=== PATIENT | male | born 2005 | race Caucasian/White ===

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

== ENCOUNTER 2024-09-14 12:46 | Outpatient (CLI) | payer OTHER, SELFPAY ==
--- OUTSIDE RECORDS SUMMARY | 2024-09-14 12:52 | XMS_ITS | Patient Health Summary ---
Author Organization [facility] Address [address] [place] [address] Care Team Providers Care Bus Aide Name Role Phone Og Austin MD Primary Care Provider [phone] Note from [facility],non-owned Affiliates and Associated Physician Practices is amultiple site organization consisting of ambulatory clinics and hospital sitesin [place], [place], [place] and [place]. This disclosure is being madepursuant to the Care Everywhere program and may not contain all information available regarding this patient. Last updated 18.[facility] Allergies No known active allergies Medications * Be aware that medications may not be up to date on this document. Alwaysverify current medications with the patient. * albuterol (PROVENTIL;VENTOLIN) (5 MG/ML) 0.5% nebulizer solution(Started 08/03/2010) Inhale 2.5 mg by mouth as directed. * divalproex sodium ER 24hr (DEPAKOTE ER) 250 MG tablet Take 250 mg by mouth daily. * divalproex DR (DEPAKOTE) 250 MG tablet(Started 08/03/2010) Take 500 mg by mouth at bedtime. Social History Tobacco Use Types Packs/Day Years Used Date Smoking Tobacco: Never Assessed Sex and Gender Information Value Date Recorded Sex Assigned at Not on file Gender Identity Not on file Sexual Orientation Not on file Last Filed Vital Signs Vital Sign Reading Time Taken Comments Blood Pressure 83/56 08/03/2010 10:23 AM DAIRY FROZEN MANAGER Pulse 133 08/03/2010 12:33 PM DAIRY FROZEN MANAGER Temperature 37.7 C (99.8 F) 08/03/2010 10:23 AM DAIRY FROZEN MANAGER Respiratory Rate 24 08/03/2010 12:33 PM DAIRY FROZEN MANAGER Oxygen Saturation 96% 08/03/2010 12:33 PM DAIRY FROZEN MANAGER Inhaled Oxygen Concentration - - Weight 29.5 kg (65 lb) 08/03/2010 10:23 AM DAIRY FROZEN MANAGER Height - - Body Mass Index - - Care Teams Bus Aide Relationship Specialty Start Date End Date Og Austin MD [address] [place] [address] PCP - General 08/03/10
--- OUTSIDE RECORDS SUMMARY | 2024-09-14 12:52 | XMS_ITS | Referral Summary ---
Author Organization [facility] Address [address] [place] [address] Care Team Providers Care Workday Manager Name Role Phone Og Austin MD Primary Care Provider [phone] Source Comments [facility],non-owned Affiliates and Associated Physician Practices is amultiple site organization consisting of ambulatory clinics and hospital sitesin [place], [place], [place] and [place]. This disclosure is being madepursuant to the Care Everywhere program and may not contain all information available regarding this patient. Last updated 18.[facility] Allergies No known active allergies Medications * Be aware that medications may not be up to date on this document. Alwaysverify current medications with the patient. Medication Sig Dispensed Refills Start Date End Date Status albuterol (PROVENTIL;VENTOLIN) (5 MG/ML) 0.5% nebulizer solution Inhale 2.5 mg by mouth as directed. 08/03/2010 Active divalproex sodium ER 24hr (DEPAKOTE ER) 250 MG tablet Take 250 mg by mouth daily. Active divalproex DR (DEPAKOTE) 250 MG tablet Take 500 mg by mouth at bedtime. 08/03/2010 Active Social History Tobacco Use Types Packs/Day Years Used Date Smoking Tobacco: Never Assessed Sex and Gender Information Value Date Recorded Sex Assigned at Not on file Gender Identity Not on file Sexual Orientation Not on file Last Filed Vital Signs Vital Sign Reading Time Taken Comments Blood Pressure 83/56 08/03/2010 10:23 AM TRAY LINE SUPERVISOR Pulse 133 08/03/2010 12:33 PM TRAY LINE SUPERVISOR Temperature 37.7 C (99.8 F) 08/03/2010 10:23 AM TRAY LINE SUPERVISOR Respiratory Rate 24 08/03/2010 12:33 PM TRAY LINE SUPERVISOR Oxygen Saturation 96% 08/03/2010 12:33 PM TRAY LINE SUPERVISOR Inhaled Oxygen Concentration - - Weight 29.5 kg (65 lb) 08/03/2010 10:23 AM TRAY LINE SUPERVISOR Height - - Body Mass Index - - Plan of Treatment Not on file Care Teams Workday Manager Relationship Specialty Start Date End Date Og Austin MD [address] [place] [address] PCP - General 08/03/10
--- OUTSIDE RECORDS SUMMARY | 2024-09-14 12:52 | XMS_ITS | Clinical Summary ---
Author Organization [facility] Address [address] [place] [address] Care Team Providers Care Director Of Community Education Name Role Phone Og Austin MD Primary Care Provider [phone] Source Comments [facility],non-owned Affiliates and Associated Physician Practices is amultiple site organization consisting of ambulatory clinics and hospital sitesin [place], [place], [place] and [place]. This disclosure is being madepursuant to the Care Everywhere program and may not contain all information available regarding this patient. Last updated 18.[facility] Allergies No known active allergies Medications * [...] Comments Blood Pressure 83/56 08/03/2010 10:23 AM TEACHER OF THE SIGHT IMPAIRED Pulse 133 08/03/2010 12:33 PM TEACHER OF THE SIGHT IMPAIRED Temperature 37.7 C (99.8 F) 08/03/2010 10:23 AM TEACHER OF THE SIGHT IMPAIRED Respiratory Rate 24 08/03/2010 12:33 PM TEACHER OF THE SIGHT IMPAIRED Oxygen Saturation 96% 08/03/2010 12:33 PM TEACHER OF THE SIGHT IMPAIRED Inhaled Oxygen Concentration - - Weight 29.5 kg (65 lb) 08/03/2010 10:23 AM TEACHER OF THE SIGHT IMPAIRED Height - - Body Mass Index - - Plan of Treatment Health Maintenance Due Date Last Done Comments HIV SCREENING 2018 HPV VACCINE (1 - Male 3-dose series) 2018 MENINGOCOCCAL (Group B) VACC INE (1 of 2 - Standard) 2019 HEPATITIS C SCREENING 08/22/2021 DTAP/TDAP/TD VACCINES (1 - Tdap) 2022 HEPATITIS B VACCINE (1 of 3 - 19+ 3-dose series) 2022 COVID-19 VACCINE (1 - 2023-2 5 season) 2024 INFLUENZA VACCINE (#1) 2024 DEPRESSION SCREENING 08/07/2024 ZOSTER VACCINE (1 of 2) 2053 HIB VACCINE Aged Out No longer eligi ble based on patient's age to complete this topic MENINGOCOCCAL VACCINE Aged Out No michelle lizeth eligible based on patient's age to complete this topic PNEUMOCOCCAL VACCINE Aged Out No long er eligible based on patient's age to complete this topic Care Teams Director Of Community Education Relationship Specialty Start Date End Date Og Austin MD [address] [place] [address] PCP - General 08/03/10
[2024-09-14 13:14] LABS: Hematocrit 44.9 % (40.0-54.0); Hemoglobin 14.4 g/dL (14.0-18.0); Mean Corpuscular HGB Conc 32.1 g/dL (32-36); Mean Corpuscular Hemoglobin 28.8 pg (27.0-31.0); Mean Corpuscular Volume 89.8 fL (78.0-102.0); Mean Platelet Volume 10.2 fl (8.7-11.0); Platelet Count Result 232 K/mm3 (150-420); Red Cell Distribution Width 13.1 % (11.6-14.4); White Blood Count 5.3 K/mm3 (4.8-10.8)
[2024-09-14 13:32] LABS: Alanine Aminotransferase 61 U/L (16-63); Albumin Level 4.3 g/dL (3.4-5.0); Alkaline Phosphatase 78 U/L (46-116); Anion Gap 9 mmol/L (4-12); Aspartate Amino Transferase 35 U/L (15-37); Bilirubin,Total 0.8 mg/dL (0.00-1.00); Blood Urea Nitrogen 11 mg/dL (7-18); Calcium 9.4 mg/dL (8.5-10.1); Carbon Dioxide 29 mmol/L (21-32); Chloride 103 mmol/L (98-108); Estimated Glomerular Filt Rate > 60; Glucose 91 mg/dL (70-99); Osmolality Calculated 291 mOsm/kg (285-295); Potassium 4.3 mmol/L (3.5-5.1); Sodium 141 mmol/L (136-145); Total Protein 7.3 g/dL (6.4-8.2)
[2024-09-14 13:41] LABS: Thyroid Stimulating Hormone Reflex 1.15 u/IU/mL (0.36-3.74)
[2024-09-14 13:48] LABS: CRP < 0.5 mg/dL (0.0-0.9)
[2024-09-14 14:08] LABS: Erythrocyte Sedimentation Rate 8 mm/hr (0-15)
[2024-09-18 03:23] LABS: Immunoglobulin A 101 mg/dL (47-310); TTG IGA AB <1.0 U/mL
== END 2024-09-14 12:47 | disposition home or self-care (01) ==
LOC: CHSLAB 12:50
PROVIDERS: Visit Provider Nurse Practitioner
DX: R19.4 Change in bowel habit (principal)
CPT/HCPCS: 36415; 80053; 82784; 83516; 84443; 85027; 85652; 86140